=== PATIENT | female | born 2005 | race Caucasian/White ===

== ENCOUNTER 2025-08-05 23:56 | Outpatient (CLI) | payer OTHER, SELFPAY | END 2025-08-05 23:57 | disposition home or self-care (01) | LOC: AMB 08-08 15:32 | PROVIDERS: PCP Internal Medicine; Visit Provider Emergency Medicine | DX: M54.9 Dorsalgia, unspecified (principal); R20.0 Anesthesia of skin | CPT/HCPCS: A0425; A0427 ==

== ENCOUNTER 2025-08-06 00:37 | Emergency (ER) | payer OTHER, SELFPAY ==
--- OUTSIDE RECORDS SUMMARY | 2025-07-31 15:00 | XMS_ITS | Encounter Summary ---
Author Organization [facility] Address [address] [place] [address] Care Team Providers Care Power Engineer Name Role Phone Jacquelyn Corbett M.D. Primary Care Provider [phone] Reason for Referral * Physical Therapy (Routine) - AuthorizedSpecialtyDiagnoses / ProceduresReferred By ContactReferred To ContactPhysical Therapy Diagnoses Pain Low Back Unspecified Neuropathy Sciatic Left Theresa Wooten P.A.-C. [address] [address] Phone: tel: fax: Referral IDStatusReasonStart DateExpiration DateVisits RequestedVisits [id number] Service not available at any [facility] site / ICAL PROOFREADER * Outpatient (Routine) - ClosedSpecialtyDiagnoses / ProceduresReferred By ContactReferred To Contact Diagnoses Pain Low Back Unspecified Neuropathy Sciatic Left Procedures DX Lumbar Spine 2-3 Views Theresa Wooten P.A.-C. [address] [address] Phone: tel: fax: [facility] Referral IDStatusReasonStart DateExpiration DateVisits RequestedVisits [id number]/16/20253/ ICAL PROOFREADER Reason for Visit * ReasonCommentsBack PainC/o back and L hip pain Encounter Details DateTypeDepartmentCare Team (Latest Contact Info)Wjowovvnmys91/16/2025 3:00 PM CSTOffice Visit Department of Family Medicine, [facility], in [place], [place] [address] [place] [address] Theresa Wooten P.A.-C. [address] [place] [address] Pain Low Back Unspecified (Primary Dx); Neuropathy Sciatic Left Social History Tobacco UseTypesPacks/DayYears UsedDateSmoking Tobacco: NeverSmokeless Tobacco: Never Tobacco Cessation:Counseling Given: Not Answered Alcohol UseStandard Drinks/WeekCommentsNever0 (1 standard drink = 0.6 oz pure alcohol)[facility] UtilitiesAnswerDate RecordedIn the past 12 months has the [place], gas, oil, or water [employer] threatened to shut off services in your home?No 10/17/2024Hunger Vital SignAnswerDate RecordedWithin the past 12 months, you worried that your food would run out before you got the money to buymore.Never true10/17/2024Within the past 12 months, the food you bought just didn't last and you didn't have money to get more.Never true10/17/2024PRAPARE - TransportationAnswerDate RecordedIn the past 12 months, has lack of transportation kept you from medical appointments or from getting medications?No 10/17/2024In the past 12 months, has lack of transportation kept you from meetings, work, or from getting things needed for daily living?No10/17/2024 DepressionAnswerDate RecordedPHQ-9 Total Score (max 27)13109/18/2024 Housing StabilityAnswerDate RecordedWhat is your living situation today?I have a steady place to live10/17/2024CommentsNoSex and Gender InformationValue Date RecordedSex Assigned at CadqtLviatg14/05/2024 11:10 AM CSTLegal SexFemale 09/18/2016 9:24 AM CSTGender UysbwmfjNzgxdm50/05/2024 11:10 AM CSTSexual OrientationNot on filedocumented as of this encounter Last Filed Vital Signs Vital SignReadingTime TakenCommentsBlood Iotxaliw928/7607/31/2025 3:00 PM CLERICAL PROOFREADER Pkjyn161007/31/2025 3:00 PM VHPYghdpphuwmz04.3 ??C (97.4 ??F)07/31/2025 2:53 PM CSTRespiratory Rate--Oxygen Saturation--Inhaled Oxygen Concentration--Ozyski509 kg (226 lb 3.1 oz)07/31/2025 2:53 PM CSTHeight--Body Mass Index35.505 12:40 PM CDTdocumented in this encounter Patient Instructions * Patient Instructions* Theresa Wooten P.A.-C. - 07/31/2025 3:00 PM CLERICAL PROOFREADER DAY 1 2 3 4 5 6 7 Morning Noon Night ------ ------ 300mg ------ ------ 300mg ------ ------ 300mg 300mg ------ 300mg 300mg ------ 300mg 300mg ------ 300mg 300mg 300mg 300mg PT options in [place] Rangel [place]: [facility] Physical Therapy: ICAL PROOFREADER ICAL PROOFREADER ICAL PROOFREADER ICAL PROOFREADER documented in this encounter Progress Notes * Theresa Wooten P.A.-C. - 07/31/2025 3:00 PM CST SUBJECTIVE CHIEF COMPLAINT/REASON FOR VISIT Chief Complaint Patient presents with Back Pain C/o back and L hip pain HISTORY OF PRESENT ILLNESS Martínez Lorenz is a pleasant 20 y.o. female who presents to the clinic today for evaluation of back pain. Patient reports proximally one-month ago she woke up with pain in her left low back. After about 1 week she was seen at [facility] and prescribed muscle relaxer and steroid without significant improvement. She was given light duty restrictions, after returning to work 2 weeks later and after fall down 1 stair she has had worsening of her back pain. Pain radiates from left lower back down left leg all the way to her foot. In her foot she describes it as the pain when your foot gets really cold. In her low back she describes a pulling sensation. Denies bowel or bladder incontinence, saddle anesthesias or unexplained fevers. She has been using ibuprofen/Tylenol as needed. Utilizing back brace which provide support while walking and cane. REVIEW OF SYSTEMS Pertinent positive ROS are listed above in HPI. Problem List[1] ALLERGIES/CONTRAINDICATIONS Allergies[2] CURRENT MEDICATIONS Current Medications[3] OBJECTIVE VITAL SIGNS Vitals: 07/31/25 1500 BP: 114/76 Pulse: 93 Temp: PHYSICAL EXAMINATION General: Well-nourished, well-developed 20 y.o. in no apparent distress. Awake, alert, age appropriate. Musculoskeletal: Tenderness palpation over lower lumbar spine and left-sided paraspinous muscles. No pain with palpation over SI joint or greater trochanter on the left side. Straight leg test is markedly positive. Neurologic: Alert and oriented x3. Bilateral patellar tendon DTRs 2+/4+. No clonus. ASSESSMENT / PLAN IMPRESSION/REPORT/PLAN: #1 Pain Low Back Unspecified #2 Neuropathy Sciatic Left -Patient treated with steroids and muscle relaxer through [facility] without significant improvement. We will proceed with XR of lumbar spine given point tenderness and fall. Referral for physical therapy provided. Will plan to begin gabapentin for management of symptoms. Taper outlined below: DAY 1 2 3 4 5 6 7 Morning Noon Night ------ ------ 300mg ------ ------ 300mg ------ ------ 300mg 300mg ------ 300mg 300mg ------ 300mg 300mg ------ 300mg 300mg 300mg 300mg -if patient develops red flag symptoms she needs to be seen in emergency room, this was discussed with patient. If symptoms fail to improve or worsen following physical therapy would recommend follow-up with MRI lumbar spine/referral PM&R. Other orders - DX Lumbar Spine 2-3 Views; Future; Expected date: 07/31/2025 - External referral PT (non-[facility]ty) - gabapentin (Neurontin) 300 mg capsule; Take 1 capsule (300 mg total) by mouth 3 (three) times a day., Starting Wed07/31/2025, Normal All questions have been answered. Patient demonstrated understanding and verbalized agreement with the plan. Thereas Wooten P.A.-C. 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 Latex Rash [3] Current Outpatient Medications: cholecalciferol (Vitamin D3) 125 mcg (5,000 Unit) capsule, Take 125 mcg by mouth daily., Disp: , Rfl: cyclobenzaprine (FlexeriL) 10 mg tablet, Take 10 mg by mouth every 8 (eight) hours as needed for muscle spasms., Disp: , Rfl: DULoxetine (Cymbalta) [address] capsule, Take 1 capsule (30 mg total) by mouth daily. Take in addition to your 60 mg capsule, Disp: 90 capsule, Rfl: 3 DULoxetine (Cymbalta) [address] capsule, TAKE 1 CAPSULE BY MOUTH ONCE DAILY WITH FOOD, Disp: 90 capsule, Rfl: 3 SUMAtriptan (Imitrex) 50 mg tablet, Take 1 tablet (50 mg total) by mouth as needed for migraine. May repeat dose once in 2 hours if migraine is unresolved. Do not exceed 200 mg in 24 hours., Disp: 9 tablet, Rfl: 3 Vitron-C 65 mg iron- [address] tablet, Take 1 tablet by mouth at bedtime., Disp: , Rfl: gabapentin (Neurontin) 300 mg capsule, Take 1 capsule (300 mg total) by mouth 3 (three) times a day., Disp: 90 capsule, Rfl: 3 ICAL PROOFREADER documented in this encounter Plan of Treatment Not on file documented as of this encounter Results * DX Lumbar Spine 2-3 Views (07/31/2025 3:46 PM CLERICAL PROOFREADER)Anatomical RegionLaterality ModalityLumbar Spine, Musculoskeletal RST LOS, Neuroradiology ARZ LOS, Muskuloskeletal FLA LOSN/ADigital RadiographySpecimen (Source)Anatomical Location / LateralityCollection Method / VolumeCollection TimeReceived Time Impressions 07/31/2025 4:08 PM CLERICAL PROOFREADER Lumbar vertebral bodies are slightly stature. No spondylolisthesis. Mild lumbar levocurvature, potentially positional. Negative for acute lumbar spine fracture. Intervertebral disc spaces appear well-preserved. Narrative 07/31/2025 4:08 PM CLERICAL PROOFREADER EXAM: DX LUMBAR SPINE 2-3 VIEWS Procedure Note Helio Holt M.D. - 07/31/2025 EXAM: DX LUMBAR SPINE 2-3 VIEWS IMPRESSION: Lumbar vertebral bodies are slightly stature. No spondylolisthesis. Mildlumbar levocurvature, potentially positional. Negative for acute lumbarspine fracture. Intervertebral disc spaces appear well-preserved. Authorizing ProviderResult TypeResult StatusCayla Sriram Wooten P.A.-C.IMG DIAGNOSTIC IMAGING PROCEDURESFinal Result documented in this encounter Visit Diagnoses Diagnosis Pain Low Back Unspecified- Primary Neuropathy Sciatic Left Pain Low Back Unspecified Neuropathy Sciatic Left documented in this encounter Additional Health Concerns AssessmentNoted TimePHQ-9 Depression Total Score: 13109/18/2024 10:01 PM CLERICAL PROOFREADER documented as of this encounter Care Teams Team MemberRelationshipSpecialtyStart DateEnd Date Jacquelyn Corbett M.D. [address] [place] [address] PCP - GeneralFamily Peqibqgj94/20/22documented as of this encounter
--- OUTSIDE RECORDS SUMMARY | 2025-07-31 15:34 | XMS_ITS | Encounter Summary ---
Author Organization [facility] Address [address] [place] [address] Care Team Providers Care Automation Tester Name Role Phone Jacquelyn Corbett M.D. Primary Care Provider Reason for Referral * Outpatient (Routine) - ClosedSpecialtyDiagnoses / ProceduresReferred By ContactReferred To Contact Diagnoses Pain Low Back Unspecified Neuropathy Sciatic Left Procedures DX Lumbar Spine 2-3 Views Theresa Wooten P.A.-C. [address] [place] [address] Phone: tel: fax: [facility] Region Referral IDStatusReasonStart DateExpiration DateVisits RequestedVisits [id number]/16/20253/18/202711 ETARY OF POLICE Reason for Visit * Outpatient (Routine) - ClosedSpecialtyDiagnoses / ProceduresReferred By ContactReferred To Contact Diagnoses Pain Low Back Unspecified Neuropathy Sciatic Left Procedures DX Lumbar Spine 2-3 Views Theresa Wooten P.A.-C. [address] [place] [address] Phone: tel: fax: [facility] Region Referral IDStatusReasonStart DateExpiration DateVisits RequestedVisits [id number]/[id number] Encounter Details DateTypeDepartmentCare Team (Latest Contact Info)Dhpuzwebjsq91/16/2025 3:34 PM SECRETARY OF POLICE - 07/31/2025 11:59 PM CSTHospital Encounter Department of Radiology in [place], [place] [address] [place] [address] Theresa Wooten P.A.-C. [address] [place] [address] Pain Low Back Unspecified; Neuropathy Sciatic Left Discharge Disposition: Home or Self Care Social History Tobacco UseTypesPacks/DayYears UsedDateSmoking Tobacco: NeverSmokeless Tobacco: NeverAlcohol UseStandard Drinks/WeekCommentsNever0 (1 standard drink = 0.6 oz pure alcohol)[facility] UtilitiesAnswerDate RecordedIn the past 12 months has the electric, gas, oil, or water [employer] threatened to shut off services in your home?No10/17/2024Hunger Vital SignAnswerDate RecordedWithin the past 12 months, you worried that your food would run out before you got the money to buymore. Never true10/17/2024Within the past 12 months, the food [...] and Gender InformationValue Date RecordedSex Assigned at LpcjdNvyiwi35/05/2024 11:10 AM CSTLegal SexFemale 09/18/2016 9:24 AM CSTGender BvvcvjctMfsbch31/05/2024 11:10 AM CSTSexual OrientationNot on filedocumented as of this encounter Medications at Time of Discharge MedicationSigDispense QuantityRefillsLast FilledStart DateEnd Date cholecalciferol (Vitamin D3) 125 mcg (5,000 Unit) capsule Take 125 mcg by mouth daily. cyclobenzaprine (FlexeriL) 10 mg tablet Take 10 mg by mouth every 8 (eight) hours as needed for muscle spasms.07/04/2025 DULoxetine (Cymbalta) [address] capsule Indications:Depression Major Recurrent Severe Without Psychotic Features (HCC) Take 1 capsule (30 mg total) by mouth daily. Take in addition to your 60 mg capsule 90 capsule 5010/17/2025 DULoxetine (Cymbalta) [address] capsule Indications:Depression Major Recurrent Severe Without Psychotic Features (HCC), AnxietyTAKE 1 CAPSULE BY MOUTH ONCE DAILY WITH FOOD 90 capsule gabapentin (Neurontin) 300 mg capsule Take 1 capsule (300 mg total) by mouth 3 (three) times a day. 90 capsule SUMAtriptan (Imitrex) 50 mg tablet Indications:Chronic Migraine Without Aura Not Intractable Without Status MigrainosusTake 1 tablet (50 mg total) by mouth as needed for migraine. May repeat dose once in 2 hours if migraine is unresolved. Do not exceed 200 mg in 24 hours. 9 tablet Vitron-C 65 mg iron- [address] tablet Take 1 tablet by mouth at bedtime.3documented as of this encounter Plan of Treatment Not on file documented as of this encounter Procedures Procedure NamePriorityDate/TimeAssociated DiagnosisCommentsDX LUMBAR SPINE 2-3 VIEWSRAD - Routine (most inpatients and all outpatients)07/31/2025 3:46 PM SECRETARY OF POLICE Pain Low Back Unspecified Neuropathy Sciatic Left documented in this encounter Results * DX Lumbar Spine 2-3 Views (07/31/2025 3:46 PM SECRETARY OF POLICE)Anatomical RegionLaterality ModalityLumbar Spine, Musculoskeletal RST LOS, Neuroradiology ARZ LOS, Muskuloskeletal FLA LOSN/ADigital RadiographySpecimen (Source)Anatomical Location / LateralityCollection Method / VolumeCollection TimeReceived Time Impressions 07/31/2025 4:08 PM SECRETARY OF POLICE Lumbar vertebral bodies are slightly stature. No spondylolisthesis. Mild lumbar levocurvature, potentially positional. Negative for acute lumbar spine fracture. Intervertebral disc spaces appear well-preserved. Narrative 07/31/2025 4:08 PM SECRETARY OF POLICE EXAM: DX LUMBAR SPINE 2-3 VIEWS Procedure Note Helio Holt M.D. - 07/31/2025 EXAM: DX LUMBAR SPINE 2-3 VIEWS IMPRESSION: Lumbar vertebral bodies are slightly stature. No spondylolisthesis. Mildlumbar levocurvature, potentially positional. Negative for acute lumbarspine fracture. Intervertebral disc spaces appear well-preserved. Authorizing ProviderResult TypeResult StatusCayljoanna Wooten P.A.-C.IMG DIAGNOSTIC IMAGING PROCEDURESFinal Result documented in this encounter Visit Diagnoses Diagnosis Pain Low Back Unspecified Neuropathy Sciatic Left documented in this encounter Additional Health Concerns AssessmentNoted TimePHQ-9 Depression Total Score: 13109/18/2024 10:01 PM SECRETARY OF POLICE documented as of this encounter Care Teams Team MemberRelationshipSpecialtyStart DateEnd Date Jacquelyn Corbett M.D. [address] [place] [address] PCP - GeneralFamily Fxanziaq85/20/22documented as of this encounter
[2025-08-06 00:39] VITALS: BP 130/87; PULSE 114; RESP 16; TEMP 36.6; O2SAT 99; BMI 35.2
--- NOTE | 2025-08-06 01:24 | ED.GENADULT ---
HPI - General Adult General Date Seen: 08/06/25 Chief complaint: Extremity Pain/Injury, Lower Stated complaint: Leg Pain Time Seen by Provider: 08/06/25 00:47 Source: patient, RN notes reviewed and old records reviewed Mode of arrival: ambulatory Limitations: no limitations History of Present Illness HPI narrative: Patient is a 20-year-old female who is in transitional housing here in [place], she has a history of back pain dating back at least 2 months. With left leg symptoms associated with this tonight she coughed, and noted pain that went down her left leg, also with weakness in her left foot. She says it feels floppy, this very much freaked her out, she called the ambulance and she was brought in here they gave her fentanyl EN route, and she feels quite a bit better now after that. She had been placed in mid June on gabapentin, is titrating that up currently. She took gabapentin and Tylenol tonight with improvement she denies any bowel or bladder symptoms associated with this, she has pulses start physical therapy but has been unable to get in. Her doctor is in [place], She has a history of depression and anxiety. But no previous history of any diagnosable back pain although she tells me she has had back problems in the past. No history of fevers chills, malignancy, bowel or bladder symptoms, she uses a cane to get around, has been you was then this since June. Related Data Home Medications ?Medication ?Instructions ?Recorded ?Confirmed duloxetine 30 mg capsule,delayed 60 mg PO BID 08/06/25 08/06/25 release gabapentin 300 mg capsule 300 mg PO TID 08/06/25 08/06/25 Previous Rx's ?Medication ?Instructions ?Recorded methylprednisolone 4 mg tablets in See Rx Instructions PO .COMPLEX 08/06/25 a dose pack (Medrol (Rao)) #21 ea Allergies Allergy/AdvReac Type Severity Reaction Status Date / Time adhesive AdvReac Verified 08/06/25 00:42 latex AdvReac Verified 08/06/25 00:42 Review of Systems Status of ROS: Reports: 10 or more systems reviewed and unremarkable except as noted in History and below PFSH PFSH Social History Smoking Status: Never smoker How often do you have a drink containing alcohol: never AUDIT-C Alcohol total score: 0 Non-prescribed substance use: marijuana (any form) Non-prescribed substance use details: medical service: No Exam Narrative: Exam Narrative: On examination in room 2 she is in no apparent distress she is able to sit up, unable to stand for me, forward flexion is rather minimal at approximately 30? her backward extension is full, she does offload her left leg notable. She has some what appears to be reactive scoliosis. No palpable tenderness on her back on palpation percussion, grossly over her clothes there is no perianal or abnormal sensation noted, she has a positive SLR her left leg, and she also has a positive SLR on the right side with crossover pain to her left side. She has some weakness of her left dorsiflexors of her foot, 4+ out of 5 in comparison to the right, little bit vacillating and not just give way weakness however she has no sensory problem notable on the top of her foot or in her left lateral magdaleno. Her muscle bulk seems normal bilaterally, her reflexes are +2/4 her knees and ankles easily. Her EHLs week also on the left at 4+ out of 5, she is able the plantar flex and walk on her toes for me, she is unable to walk on her heels with weakness on the left side. Her knee extensors flexors and hip flexors are graded 5/5 power bilaterally. Const: Vital Signs, click to edit/add: Vital Signs - 24 hr 08/06/25 00:39 Temperature 98 F Pulse Rate [Pulse Oximeter] 114 H Respiratory Rate 16 Blood Pressure [Ri ght Upper Arm] 130/87 Pulse Oximetry 99 Oxygen Delivery Me thod Room Air Documenting provider has reviewed patient's vital signs: yes Course Course ED Course: I went back in, patient is feeling a lot better, I reviewed with her that this is at L5 disc herniation that is causing the issue, she will need an MRI. We went over signs and symptoms of worsening, she should be back on her Medrol. And take the gabapentin, Vital Signs Vital signs: Initial Vital Signs Temperature 98 F 08/06/25 00:39 Temperature Source Temporal Artery Scan 08/06/25 00:39 Pulse Rate 114 H 08/06/25 00:39 Respiratory Rate 16 08/06/25 00:39 Blood Pressure 130/87 08/06/25 00:39 Blood Pressure Mean 101 08/06/25 00:39 Blood Pressure Position Semi-Fowlers 08/06/25 00:39 Pulse Oximetry 99 08/06/25 00:39 Oxygen Delivery Method Room Air 08/06/25 00:39 Vital Signs Temperature 98 F 08/06/25 00:39 Pulse Rate 114 H 08/06/25 00:39 Respiratory Rate 16 08/06/25 00:39 Blood Pressure 130/87 08/06/25 00:39 Pulse Oximetry 99 08/06/25 00:39 Oxygen Delivery Method Room Air 08/06/25 00:39 Temperature 98 F 08/06/25 00:39 Pulse Rate 114 H 08/06/25 00:39 Respiratory Rate 16 08/06/25 00:39 Blood Pressure 130/87 08/06/25 00:39 Pulse Oximetry 99 08/06/25 00:39 Oxygen Delivery Method Room Air 08/06/25 00:39 Medications Administered Medications: Discontinued Medications Generic Name Dose Route Start Last Admin Trade Name Freq PRN Reason Stop Dose Admin Dexamethasone 4 mg 08/06/25 00:59 08/06/25 01:19 Dexamethasone 4 Mg/Ml Vial IM 08/06/25 01:00 4 mg ONCE ONE Administration Morphine Sulfate 10 mg 08/06/25 00:59 08/06/25 01:19 Morphine 10 Mg/Ml Inj IM 08/06/25 01:00 10 mg ONCE ONE Administration Medical Decision Making [facility] Narrative Medical decision making narrative: Life-threatening differential diagnosis considered include: Cauda equina an epidural abscess, other differential diagnosis considered includes sprain, contusion, nerve root entrapment, radiculopathy, muscle spasm, urolithiasis, lumbar fracture, pyelonephritis, appendicitis, biliary colic, as well as other etiologies. The patient denies saddle anesthesia bowel or bladder incontinence or lower extremity weakness, recent weight loss, or history of malignancy. This is characteristic of an L5 nerve compression. Likely from a disc issue. N/C no other red flag symptoms here. She was on some steroids early on in her course, we will go ahead and give her IM steroids here along with some morphine for her discomfort. She may need some advanced imaging sooner than later, we will see how it goes here. Medical Records Medical records reviewed: Yes I reviewed the patient's medical records Medical records narrative: I reviewed her records in [facility], she did have an x-ray that was normal. Discharge Plan Discharge Clinical Impression: Back pain, Acute left lumbar radiculopathy, Foot-drop Patient Disposition: Home, Self-Care Condition: Improved Instructions: Acute Low Back Pain (ED) Additional Instructions: Home, rest, return here if increasing symptoms such as bowel or bladder symptoms, numbness gets progressively worse, weakness gets progressively worse, recommend follow-up within the next 2 3 days with primary care, given the name of a couple primary care physicians, would recommend an MRI. Take your gabapentin, take the Medrol, Tylenol is also helpful, avoidance of Advil, Activity Level: Light activity Discharge Diet: Regular Prescriptions: New methylprednisolone [Medrol (Rao)] 4 mg tablets,dose pack See Rx Instructions .ROUTE .COMPLEX Qty: 21 0RF Rx Instructions: for 6 days No Action gabapentin 300 mg capsule 300 mg PO TID duloxetine 30 mg capsule,delayed release(DR/EC) 60 mg PO BID Follow Up/Referrals: Wil Hogan MD [Staff Physician, Family Practice] Provider,Not a Local [Primary Care Provider, Family Practice] Tobias Owens MD [Staff Physician, Internal Medicine] Stand Alone Forms: Compression Kinetics Info Instructions
--- OUTSIDE RECORDS SUMMARY | 2025-08-06 02:20 | XMS_ITS | Clinical Summary ---
Author Organization [facility] Address [address] [place] [id number] Care Team Providers Care Craft Demonstrator Name Role Phone Silva Hyatt MD Primary Care Provider Unavailable Allergies Active AllergyReactionsCriticalityNoted DateCommentsAdhesive Tape-SiliconesRash 08/13/2018 Had local erythema for several days after tape removed. KwerxKzcxYwq50/23/2019 Medications MedicationSigDispense QuantityRefillsLast FilledStart DateEnd DateStatus fluticasone (50 mcg per actuation) nasal solution (FLONASE) Inhale 2 Sprays to both nostrils once daily.Active ascorbic acid, vitamin C, (VITAMIN C) 250 mg tablet Take 250 mg by mouth once daily.Active ferrous sulfate, 65 mg elemental, tablet Take 325 mg by mouth once daily.Active cholecalciferol (VITAMIN D3) 400 unit tablet Take 400 units by mouth once daily. 40 units = 1 mcg (400 unit = 10 mcg)Active ondansetron (ZOFRAN ODT) 8 mg disintegrating tablet Indications:Vomiting, unspecified vomiting type, unspecified whether nausea presentPlace 1 Tablet (8 mg) on the tongue every 8 hours if needed for Nausea/Vomiting. 12 Tablet 4Active Active Problems ProblemNoted DateDiagnosed DateSevere episode of recurrent major depressive disorder, without psychotic eoutygiv00/28/2018 Family History Medical HistoryRelationNameCommentsADD / ADHDBrotherDepressionFatherDepression SisterRelationNameStatusCommentsBrotherFatherSister Social History Tobacco UseTypesPacks/DayYears UsedDateSmoking Tobacco: Passive Smoke Exposure - Never SmokerSmokeless Tobacco: Never Comments:Mother smokes outsi de the home and in the car sometimes w window open. 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 Qmfkg254708/30/2023 12:31 AM QWHBopfyvzhtgb44.3 ??C (99.1 ??F)08/29/2023 11:55 PM CSTRespiratory Yngr911208/29/2023 11:55 PM CSTOxygen Iogyzjerfs83%08/30/2023 12:31 AM CSTInhaled Oxygen Concentration--Pcviqa78.5 kg (195 lb)08/29/2023 11:55 PM NEIXlimck807.2 cm (5' 7)08/29/2023 11:55 PM CSTBody Mass Index30.54008/29/2023 11:55 PM PROFESSOR OF 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 Plan of Treatment Health MaintenanceDue DateLast DoneCommentsTetanus comrvai9606/16/2015Depression screening for age 12+2016HIV for age 15-6506/16/2019HPV series for age 9- 45 (1 - 3-dose series)2019Meningococcal series for age 11-21 (1 - 2-dose series)2020BMI (ht and wt on same day) for age 18+2022Hepatitis C screening for age 18-7906/16/2022Hepatitis B series for 19+ (1 of 3 - 19+ 3-dose series)3COVID-19 vaccine series ( - 2024- season)2025 09/20/2023, 08/11/2021, 01/14/2021, Additional history existsInfluenza Vaccine (#1)04/16/2025Pap test for age 21-6511/08/2024Pneumococcal series for age 6-49 Aged OutNo longer eligible based on patient's age to complete this topic Insurance Advance Directives * Full Code (Latest Code Status on File) Date ActivatedDate MsoesmgxzutBcwqvixi96/27/2018 3:52 PM08/23/2018 5:48 PMQuestion AnswerCommentsCode Status Discussion:* Not Discussed Care Teams Team MemberRelationshipSpecialtyStart DateEnd Date Silva Hyatt MD PCP - GwcnmufVwcgozunx55/27/18
--- OUTSIDE RECORDS SUMMARY | 2025-08-06 02:20 | XMS_ITS | Clinical Summary ---
Author Organization [facility] Address [address] [place] [address] Care Team Providers Care Supervisor Final Name Role Phone Jacquelyn Corbett M.D. Primary Care Provider Source Comments Patient records contain information from all sites at [facility]. For routine questions regarding patient records, call [phone] during business hours, M-F 8:00 AM - 5:00 PM Central Time. Record requests for emergency care only can be directed to [phone] at any time.[facility] Allergies Active AllergyReactionsCriticalityNoted DateCommentsAdhesive Tape-SiliconesRash 08/13/2018 Had local erythema for several days after tape removed. IlgpmYtgyCns69/23/2019 Medications * This document contains information received from the source organization and may not represent a complete record from that organization. MedicationSigDispense QuantityRefillsLast FilledStart DateEnd DateStatus Vitron-C 65 mg iron- [address] tablet Take 1 tablet by mouth at bedtime.09/11/2022ctive DULoxetine (Cymbalta) [address] capsule Indications:Depression Major Recurrent Severe Without Psychotic Features (HCC) Take 1 capsule (30 mg total) by mouth daily. Take in addition to your 60 mg capsule 90 capsule ctive SUMAtriptan (Imitrex) 50 mg tablet Indications:Chronic Migraine Without Aura Not Intractable Without Status MigrainosusTake 1 tablet (50 mg total) by mouth as needed for migraine. May repeat dose once in 2 hours if migraine is unresolved. Do not exceed 200 mg in 24 hours. 9 tablet 5Active cholecalciferol (Vitamin D3) 125 mcg (5,000 Unit) capsule Take 125 mcg by mouth daily.Active DULoxetine (Cymbalta) [address] capsule Indications:Depression Major Recurrent Severe Without Psychotic Features (HCC), AnxietyTAKE 1 CAPSULE BY MOUTH ONCE DAILY WITH FOOD 90 capsule 5Active cyclobenzaprine (FlexeriL) 10 mg tablet Take 10 mg by mouth every 8 (eight) hours as needed for muscle spasms.07/04/2025 Active gabapentin (Neurontin) 300 mg capsule Take 1 capsule (300 mg total) by mouth 3 (three) times a day. 90 capsule 5Active DULoxetine (Cymbalta) [address] capsule Indications:Depression Major Recurrent Severe Without Psychotic Features (HCC), AnxietyTake 1 capsule (60 mg total) by mouth daily. with food 90 capsule Discontinued Active Problems Patient Care Coordination No te Formatting of this note migh t be different from the original. Cad Developer: Mariia Garcia: [phone] ProblemNoted DateDiagnosed DateChronic Migraine Without Aura Not Intractable Without Status Budehfjcvvi76/05/2024 Assessment & Plan (10/17/2024 9:46 AM DESIGN TRANSFERRER): Orders: SUMAtriptan (Imitrex) 50 mg tablet; Take 1 tablet (50 mg total) by mouth as needed for migraine. May repeat dose once in 2 hours if migraine is unresolved. Do not exceed 200 mg in 24 hours. Pkuzwqqt56/02/2023 Assessment & Plan (10/17/2024 9:46 AM DESIGN TRANSFERRER): -Consider Magnesium Glycinate 400mg at bedtime for sleep. -Continue current sleep hygiene practices. Lymphadenopathy Pmijvoqz22/16/2023 Assessment & Plan (10/17/2024 9:46 AM DESIGN TRANSFERRER): No change in size, but increased frequency and severity of pain. No recent illness. Pain also notedin neck, possibly related to work activities. -Consider ultrasound if size increases. -Continue monitoring symptoms. Byfzkse3604/10/2019 Assessment & Plan (10/17/2024 9:46 AM DESIGN TRANSFERRER): Seasonal exacerbation noted, improving with warmer weather. No suicidal ideation. Currently on Duloxetine 60mg. -Increase Duloxetine to 90mg daily. Patient can split dose if desired. Post Traumatic Stress Disorder Quyqsjd2308/29/2018 Assessment & Plan (10/17/2024 9:46 AM DESIGN TRANSFERRER): Seasonal exacerbation noted, improving with warmer weather. No suicidal ideation. Currently on Duloxetine 60mg. -Increase Duloxetine to 90mg daily. Patient can split dose if desired. Depression Major Recurrent Severe Without Psychotic Yqrljhcx62/28/2018 Assessment & Plan (10/17/2024 9:46 AM DESIGN TRANSFERRER): Seasonal exacerbation noted, improving with warmer weather. No suicidal ideation. Currently on Duloxetine 60mg. -Increase Duloxetine to 90mg daily. Patient can split dose if desired. Orders: DULoxetine (Cymbalta) [address] capsule; Take 1 capsule (30 mg total) by mouth daily. Take in addition to your 60 mg capsule Resolved Problems ProblemNoted DateDiagnosed DateResolved DateEnuresis Nonorganic Dqjczp9606/19/2015 06/10/2022 Encounters DateTypeDepartmentCare ThlfFalvvjrdanz77/16/2025 3:34 PM DESIGN TRANSFERRER - 07/31/2025 11:59 PM CSTHospital Encounter Department of Radiology in [place], [place] [address] [place] [phone] Theresa Wooten, P.A.-C. Pain Low Back Unspecified; Neuropathy Sciatic Left Discharge Disposition: Home or Self Care07/31/2025 3:00 PM CSTOffice Visit Department of Family Medicine, [facility], in [place], [place] [address] [address] Theresa Wooten, P.A.-C. Pain Low Back Unspecified (Primary Dx); Neuropathy Sciatic Left07/31/2025Results Follow-Up Department of Family Medicine, [facility], in [place], [place] [address] [phone] Theresa Wooten, P.A.-C. DX Lumbar Spine 2-3 Views07/04/2025Refill Department of Family Medicine, [facility], in [place], [place] [address] [phone] Jacquelyn Corbett M.D. Med Refillfrom Last 3 Months Immunizations ImmunizationAdministration DatesNext Ldp8zZAD (discontinued)06/19/2015, 06/22/2014DTaP (Infanrix, Tripedia)07/06/2008,12/14/2005,2004,2004 DTaP / Hep B / IPV (Pediarix)2004H1N1 All Forms07/04/2009HepA Pediatric/Cvwitvcfma30/04/2008,06/24/2007HepB, Brmduiavaum69/09/2007,2004 Hib (PRP-T) (ACTHIB, HIBERIX)12/14/2005,2004,2004Hib-HepB110/14/2003 IPV07/06/2008,2004,2004Influenza, Seasonal, Vfbglornal21/17/2010, 07/06/2008,06/24/2007,06/15/2006Influenza, Uroidqwwvik28/07/2014,07/06/2008, 06/24/2007,06/15/2006MCV4 (Menactra)(Discontinued)05/12/2021,04/02/2017MMR 07/06/2008,08/10/2005PCV7 (discontinued)12/14/2005,2004,2004, 08/13/20044264IFXZ-IIQ-5 (COVID-19) - MODERNA (12 YEARS AND OLDER) Fall Seasonal 09/20/20235368FQTM-TJL-3 (COVID-19) - PFIZER (Discontinued)(12 years or older) 08/11/2021Tdap108/19/2014VAR07/06/2008,08/10/2005influenza trivalent LAIV (Nasal) (2 years through 49 years)06/19/2015influenza vaccine (FLUBLOK) (18 years or older) (PF)09/11/2024influenza vaccine quad (FLUZONE/FLUARIX) (6 months and older)(PF)09/20/2023,06/10/2022,08/07/2019,07/27/2018 Family History Medical HistoryRelationNameCommentsADD / ADHDBrotherBrandonNot treated for ADHD ADDFatherrobertADD / ADHDFatherrobertAlcohol abuseFatherrobertAnxiety disorder FatherrobertDepressionFatherrobertOtherFatherrobertFather not living with patient, unsure of father's historyAlcohol abuseMotherannAnxiety disorderMother annArthritisMotherannDepressionMotherannGestational diabetesMotherann HypertensionMotherannhtnMotherannCancerPaternal Grandfatherbobunknown cancer HypertensionPaternal GrandfatherbobAlcohol abusePaternal GrandmotherLorraine ArthritisPaternal GrandmotherLorraineDiabetesPaternal GrandmotherLorraine Diabetes type IIPaternal GrandmotherLorraineObesityPaternal GrandmotherLorraine ADD / ADHDSister 1BrittneyNot treated for ADHDDepressionSister 1Brittney PsoriasisSister 2MikaylaRelationNameStatusCommentsBrotherBrandonAliveFather robertAliveMotherannAlivePaternal GrandfatherbobDeceasedPaternal Grandmother LorraineAliveSister 1BrittneyAliveSister 2MikaylaAlive Social History Tobacco UseTypesPacks/DayYears UsedDateSmoking Tobacco: NeverSmokeless Tobacco: Never Tobacco Cessation:Counseling Given: Not Answered Alcohol UseStandard Drinks/WeekCommentsNever0 (1 standard drink = 0.6 oz pure alcohol)[facility] UtilitiesAnswerDate RecordedIn the past 12 months has the [employer], [employer], or water [employer] threatened to shut off services in your [...] and Gender InformationValue Date RecordedSex Assigned at XphjwCzoorz73/05/2024 11:10 AM CSTLegal SexFemale 09/18/2016 9:24 AM CSTGender BqyacwdcDlbjpv25/05/2024 11:10 AM CSTSexual OrientationNot on file Last Filed Vital Signs Vital SignReadingTime TakenCommentsBlood Gskriexd701/7607/31/2025 3:00 PM DESIGN TRANSFERRER Lbzyy912207/31/2025 3:00 PM MUOZrxcwlutttd14.3 ??C (97.4 ??F)07/31/2025 2:53 PM CSTRespiratory Jfvw564905/12/2021 2:13 PM CDTOxygen Gszkixqsit55%11/29/2018 10:59 AM CDTInhaled Oxygen Concentration--Zjyytx519 kg (226 lb 3.1 oz)07/31/2025 2:53 PM QXOCseibk761 cm (5' 6.93)12/27/2023 12:40 PM CDTBody Mass Index35.5 12/27/2023 12:40 PM CDT Plan of Treatment Health MaintenanceDue DateLast DoneCommentsCervical/Vaginal Cancer Screening 2004Hepatitis C Wbdethdss87/01/20041 week Well Child Check-Up month Well Child Check-Up month Well Child Check-Up month Well Child Check-Up month Well Child Check-Up month Well Child Check-Up month Well Child Check-Up year Well Child Check-Up month Well Child Check-Up year Well Child Check-Up10/01/36733 year Well Child Check-Up year Well Child Check-Up year Well Child Check-Up year Well Child Check-Up 05/16/201210 year Well Child Check-Up05/16/201412 year Well Child Check-Up 05/16/201613 year Well Child Check-Up year Well Child Check-Up 05/16/2021OVID-19 Vaccine (2024- season)/12/2023, 08/11/2021, 01/14/2021, Additional history existsInfluenza Vaccine (#1)/, 09/20/2023, 06/10/2022, Additional history pgnosb99 year Well Child Check-Up 05/16/2025DTaP,Tdap,and Td Vaccines (7 - Td or Tdap), 07/06/2008, 12/14/2005, Additional history existsTB Screening during Well Child Visit/10/2024Depression Monitoring (PHQ-9)/10/2024 Pneumococcal vaccine (0-49 years)Aged Out12/14/2005, 2004, 2004, Additional history existsNo longer eligible based on patient's age to complete this topicHepatitis B QbafebcvReltritda78/09/2007, 2004, 2004, Additional history existsIPV LsncbredPulgocbtl63/21/2008, 2004, 2004, Additional history existsVaricella WfvrakulEmewcikvf91/21/2008, 08/10/2005HPV WnapgpzqUsatakfgq73/04/2015, 06/22/201414 year Well Child Check-Up Kmvkgldmt46/12/275973 year Well Child Check-JxCpqfuuepc34/23/2019Hearing Screening during Well Child AreuiNkzmuafjh91/27/2021Meningococcal Vaccine Ctkbbdsgu57/27/2021, year Well Child Check-EdRfodonhur24/26/202219 year Well Child Check-NwKprmdrjsw61/05/202420 year Well Child Check-UpCompleted 10/17/2024Depression Monitoring (PHQ-9 for quality tracking)Mbghbbzoc31/04/2025 Well Child Check-Up (WCC)CompletedWell Child Check-Up Completed in Past Year Pxaukywtl90/04/2025 Procedures Procedure NamePriorityDate/TimeAssociated DiagnosisCommentsDX LUMBAR SPINE 2-3 VIEWSRAD - Routine (most inpatients and all outpatients)07/31/2025 3:46 PM DESIGN TRANSFERRER Pain Low Back Unspecified Neuropathy Sciatic Left from Last 3 Months Results * DX Lumbar Spine 2-3 Views (07/31/2025 3:46 PM DESIGN TRANSFERRER)Anatomical RegionLaterality ModalityLumbar Spine, Musculoskeletal RST LOS, Neuroradiology ARZ LOS, Muskuloskeletal FLA LOSN/ADigital RadiographySpecimen (Source)Anatomical Location / LateralityCollection Method / VolumeCollection TimeReceived Time Impressions 07/31/2025 4:08 PM DESIGN TRANSFERRER Lumbar vertebral bodies are slightly stature. No spondylolisthesis. Mild lumbar levocurvature, potentially positional. Negative for acute lumbar spine fracture. Intervertebral disc spaces appear well-preserved. Narrative 07/31/2025 4:08 PM DESIGN TRANSFERRER EXAM: DX LUMBAR SPINE 2-3 VIEWS Procedure Note Helio Holt M.D. - 07/31/2025 EXAM: DX LUMBAR SPINE 2-3 VIEWS IMPRESSION: Lumbar vertebral bodies are slightly stature. No spondylolisthesis. Mildlumbar levocurvature, potentially positional. Negative for acute lumbarspine fracture. Intervertebral disc spaces appear well-preserved. Authorizing ProviderResult TypeResult StatusCayla Sriram Wooten P.A.-C.IM DIAGNOSTIC IMAGING PROCEDURESFinal Result from Last 3 Months Insurance * Guarantor: Martínez Lorenz TypeRelation to PatientDate of BirthPhoneBilling AddressPersonal/FxmarwQzau[address] [facility] [address] [place] [address] Care Teams Team MemberRelationshipSpecialtyStart DateEnd Date Jacquelyn Corbett M.D. [address] [place] [phone] PCP - GeneralFamily Pnhlxjkj72/20/22
--- OUTSIDE RECORDS SUMMARY | 2025-08-06 02:20 | XMS_ITS | Encounter Summary ---
Author Organization [facility] Address [address] [place] [address] Care Team Providers Care Registered Nurse Step Down Name Role Phone Jacquelyn Corbett M.D. Primary Care Provider [phone] Reason for Visit * ReasonCommentsMed Refill Encounter Details DateTypeDepartmentCare Team (Latest Contact Info)Ougcxznbdcf90/19/2025Refill Department of Family Medicine, [facility], in [place], [place] [address] [place] [phone] Jacquelyn Corbett M.D. [address], [place] [address] Med Refill Social History Tobacco UseTypesPacks/DayYears UsedDateSmoking Tobacco: NeverSmokeless Tobacco: NeverAlcohol UseStandard Drinks/WeekCommentsNever0 (1 standard drink = 0.6 oz pure alcohol)[facility] UtilitiesAnswerDate RecordedIn the past 12 months has the [employer], gas, oil, or water [employer] threatened to shut off services in your [...] daily living?No10/17/2024 DepressionAnswerDate RecordedPHQ-9 Total Score (max 27) Housing StabilityAnswerDate RecordedWhat is your living situation today?I have a steady place to live10/17/2024CommentsUnknownSex and Gender Information ValueDate RecordedSex Assigned at XqouiDfyxud49/05/2024 11:10 AM CSTLegal Sex Fuhdts6809/18/2016 9:24 AM CSTGender QjewupczBplmmc06/05/2024 11:10 AM CSTSexual OrientationNot on filedocumented as of this encounter Plan of Treatment Not on file documented as of this encounter Visit Diagnoses Diagnosis Depression Major Recurrent Severe Without Psychotic Features (HCC) Anxiety documented in this encounter Additional Health Concerns AssessmentNoted TimePHQ-9 Depression Total Score: 1:45 PM CDT documented as of this encounter Care Teams Team MemberRelationshipSpecialtyStart DateEnd Date Jacquelyn Corbett M.D. NPVictorina: [phone] [address] [place] [phone] PCP - GeneralFamily Unckenum02/20/22documented as of this encounter
--- OUTSIDE RECORDS SUMMARY | 2025-08-06 02:21 | XMS_ITS | Encounter Summary ---
Author Organization [facility] Address [address] [place] [address] Care Team Providers Care Analysis Director Name Role Phone Jacquelyn Corbett M.D. Primary Care Provider [phone] Encounter Details DateTypeDepartmentCare Team (Latest Contact Info)Fvgidzzephh83/16/2025Results Follow-Up Department of Family Medicine, [facility], in [place], [place] [address] [phone] Theresa Wooten P.A.-C. [address] [place] [phone] DX Lumbar Spine 2-3 Views Social History Tobacco UseTypesPacks/DayYears UsedDateSmoking Tobacco: NeverSmokeless Tobacco: NeverAlcohol UseStandard Drinks/WeekCommentsNever0 (1 standard drink = 0.6 oz pure alcohol)[facility] UtilitiesAnswerDate RecordedIn the past 12 months has the [employer], gas, oil, or water [employer] threatened to shut off services in your [...] and Gender InformationValue Date RecordedSex Assigned at NfceeWkncwz47/05/2024 11:10 AM CSTLegal SexFemale 09/18/2016 9:24 AM CSTGender VwthfxwpBeztym08/05/2024 11:10 AM CSTSexual OrientationNot on filedocumented as of this encounter Plan of Treatment Not on file documented as of this encounter Visit Diagnoses Not on filedocumented in this encounter Additional Health Concerns AssessmentNoted TimePHQ-9 Depression Total Score: 10:01 PM 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 NPVictorina: [phone] [address] [place] [phone] PCP - GeneralFamily Yzyujkxx11/20/22documented as of this encounter
== END 2025-08-06 02:41 | disposition home or self-care (01) ==
PROVIDERS: Emergency Provider Family Medicine
DX: M54.16 Radiculopathy, lumbar region (principal); M21.372 Foot drop, left foot; Z79.899 Other long term (current) drug therapy
CPT/HCPCS: 96372; 99284; J1100; J2270